=== PATIENT | male | born 1995 | race Caucasian/White ===

== ENCOUNTER 2022-02-11 10:13 | Emergency (ER) | payer BC, OTHER ==
--- NOTE | 2022-02-11 13:11 | ED Physician Documentation ---
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 He reports that he was working out while at work and was squatting with 185 pounds. He felt a sharp pain in his low back and now has pain radiating to both sides. No saddle anesthesia loss of bowel or bladder function. He reports that intermittently through the years he has had low back pain that he is never had formally evaluated. No history of diabetes, cancer. No history of injection drug use. No fevers. Review of Systems Constitutional: reports: Reviewed and negative Ears: reports: Reviewed and negative Cardiac: reports: Reviewed and negative Respiratory: reports: Reviewed and negative GI: reports: Reviewed and negative : reports: Reviewed and negative Musculoskeletal: reports: Back pain Neurologic: reports: Reviewed and negative Psychiatric: reports: Reviewed and negative PD PAST MEDICAL HISTORY - Past Medical History Psych: ADD/ADHD - Past Surgical History Past Surgical History: No - Present Medications Home Medications: Ambulatory Orders Medication Instructions Recorded Confirmed Methylphenidate HCl [Concerta] 36 mg PO 02/03/13 02/03/13 Ibuprofen [Motrin] 800 mg PO Q8H PRN #30 tablet 02/11/22 - Allergies Allergies/Adverse Reactions: Allergies Allergy/AdvReac Type Severity Reaction Status Date / Time No Known Drug Allergies Allergy Verified 02/11/22 10:22 - Social History Does the pt smoke?: No Smoking Status: Never smoker Does the pt drink ETOH?: No Does the pt have substance abuse?: No - Immunizations Immunizations are current?: Yes PD ED PE NORMAL - General General: Alert and oriented X 3, No acute distress, Well developed/nourished - HEENT HEENT: Atraumatic, Moist mucous membranes - Neck Neck: Supple, no meningeal sign, No adenopathy - Cardiac Cardiac: RRR, No murmur, No gallop - Respiratory Respiratory: No respiratory distress, Clear bilaterally - Abdomen Abdomen: Normal bowel sounds, Soft - Back Back: No CVA TTP, No spinal TTP, Other (Mild lower midline tenderness with radiation across to both lumbar paraspinous muscles. Mildly antalgic gait. Motor strength 5 of 5 bilateral lower extremities. Full lower lumbar forward flexion. 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 He does report a history of recurrent low back pain in the past. 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 He is to follow-up with [facility] provider. I do recommend Tylenol and ibuprofen for discomfort. Emergent return precautions were discussed. [employer] [id number] was filled out Departure - Departure Disposition: 01 Home, Self Care Clinical Impression: Injury of lower back Qualifiers: Encounter type: initial encounter Qualified Code(s): S39.92XA - Unspecified injury of lower back, initial encounter Condition: Stable Record reviewed to determine appropriate education?: Yes Instructions: ED Low Back Pain Injury Prescriptions: Ibuprofen [Motrin] 800 mg PO Q8H PRN #30 tablet PRN Reason: PAIN &/OR FEVER Comments: Sukumar you were seen today in the emergency department After lifting heavy weights and feeling pain in your low back. Your exam is very reassuring given your ability to walk and bend over. I suspect that this may be a strain on the muscles though it is also possible you have a minor disc herniation. In order to manage this I would like you to fill the prescription for the ibuprofen to begin taking as directed 3 times a day with food. No further heavy lifting pushing or pulling until you are cleared by [facility] provider. I have initially given you 1 week free of duty but you do need to see a provider before then. If your symptoms are improving you may be able to return to work sooner. If at any point you develop numbness or tingling in your genital area, have loss control bowel or bladder function, have sudden weakness in your lower legs then please return immediately to the ER for a second evaluation.
[2022-02-11] MEDS ORDERED: KETOROLAC 60 MG/2 ML VIAL IM STA (13:12)
[2022-02-11 13:39] VITALS: BP 140/68
== END 2022-02-11 13:39 | disposition home or self-care (01) ==
LOC: ED 10:13
DX: S39.92XA Unspecified injury of lower back, initial encounter (principal); X50.0XXA Overexertion from strenuous movement or load, initial encounter; Y93.B3 Activity, free weights; Y92.89 Other specified places as the place of occurrence of the external cause
CPT/HCPCS: 1040M; 99282; 99283

== ENCOUNTER 2023-09-03 19:58 | Emergency (ER) | payer OTHER, BC ==
--- NOTE | 2023-09-03 20:48 | ED Physician Documentation ---
History of Present Illness - Stated complaint Stated Complaint: SHARPS EXPOSURE - Chief complaint Chief Complaint: General - Additonal information Additional information: 28-year-old male with no significant past medical history presents emergency department today for concerns of an exposure that he had out in the field. 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 Patient reports that one of his colleagues was worried about this being a tool that is used for drug paraphernalia he brought the tool in to have evaluated and I can confirm that this is a tool used for blackhead or gonzalez extractions for the face. It appears to be clean there is no needle although that and of the tool is sharp. Patient says that he does not remember for sure what part of his hand he hit but he is unsure if any skin was broken or not and he is unsure if the globe is broken or not. He said the code lasted for about an hour or so he is unable to wash his hands until about an hour after the incident happened. He is recommended to come in for further evaluation and to have this fully evaluated as well. PD PAST MEDICAL HISTORY - Past Medical History Past Medical History: No Psych: ADD/ADHD - Past Surgical History Past Surgical History: No - Present Medications Home Medications: Ambulatory Orders Medication Instructions Recorded Confirmed No Known Home Medications 09/03/23 09/03/23 - Allergies Allergies/Adverse Reactions: Allergies Allergy/AdvReac Type Severity Reaction Status Date / Time No Known Drug Allergies Allergy Verified 09/03/23 20:14 - Social History Does the pt smoke?: No Smoking Status: Former smoker Does the pt drink ETOH?: No Does the pt have substance abuse?: No - Immunizations Immunizations are current?: Yes - POLST Patient has POLST: No PD ED PE NORMAL - Vitals Vital signs reviewed: Yes - General General: Alert and oriented X 3, No acute distress, Well developed/nourished - Derm Derm: Normal color, Warm and dry, No rash - Extremities Extremities: No deformity Results - Vitals Vitals: Vital Signs - 24 hr 09/03/23 09/03/23 20:09 21:28 Temperature 36.6 C Heart Rate 90 75 Respiratory 16 18 Rate Blood Pressure 158/79 H 116/81 H O2 Saturation 97 98 Oxygen O2 Source Room air PD Medical Decision Making - ED course ED course: 28-year-old male comes to the emergency department for concerns of exposure to possible drug paraphernalia. I am able to confirm that this stool is used for blackhead extractions. I do not see any open wounds to the patient's hand we discussed doing labs although given the tool it is not a needle that is done a hypodermic tool and it is not drug paraphernalia I do not believe that labs are warranted at this time and patient agrees with the plan. Patient given strict return precautions when to report back to the emergency department and told to follow-up with primary care provider as needed. Departure - Departure Disposition: 01 Home, Self Care Clinical Impression: Exposure to body fluid Condition: Good Instructions: ED Body Fluid Exp HC Worker Comments: Thank you for trusting us with your care and for your service. The tool that you have brought in is used for blackhead since it is because it is a blunt tipped tool not a needle and on a hypodermic needle you can risk of exposure to HIV or hepatitis is very very very low if any at all. I do not believe labs are recommended given the nature of the exposure to the stool. Please follow-up with primary care provider as needed and you are safe to return to work.xposure to HIV or hepatitis is very very very low if any at all. I do not believe labs are recommended given the nature of the exposure to the stool. Please follow-up with primary care provider as needed and you are safe to return to work Forms: PCP List Discharge Date/Time: 09/03/23 21:28
[2023-09-03 21:33] VITALS: BP 116/81; O2SAT 98
== END 2023-09-03 21:28 | disposition home or self-care (01) ==
LOC: ED 19:58
DX: Z77.21 Contact with and (suspected) exposure to potentially hazardous body fluids (principal); Z87.891 Personal history of nicotine dependence
CPT/HCPCS: 1040M; 99281; 99283